=== PATIENT | male | born 1960 | race Caucasian/White ===

== ENCOUNTER 2024-07-05 09:54 | Emergency (ER) | payer OTHER ==
[2024-07-05 10:04] VITALS: BP 125/85; PULSE 99; RESP 20; TEMP 99.9; BMI 28.8
[2024-07-05] MEDS ORDERED: ACETAMINOPHEN 500 MG TABLET (FP) ONE (10:29)
[2024-07-05] MEDS: ACETAMINOPHEN 500 MG TABLET (FP) PO ONE (10:31)
== END 2024-07-05 11:15 | disposition home or self-care (01) ==
LOC: JERFT 09:54
DX: R05.9 Cough, unspecified (principal); R50.9 Fever, unspecified
CPT/HCPCS: 71046-TC-FY; 99283-25